=== PATIENT | male | born 1980 ===

== ENCOUNTER 2020-10-10 06:14 | Day surgery (SDC) | payer OTHER ==
[2020-10-10 11:21] VITALS: BP 127/75
== END 2020-10-10 11:35 | disposition home or self-care (01) | DRG 352 ==
LOC: ORM 06:14
PROVIDERS: ATTEND Surgery
PROC: 0YU60JZ Supplement Left Inguinal Region with Synthetic Substitute, Open Approach (ICD-10-PCS; principal; 2020-10-10)
DX: K40.91 Unilateral inguinal hernia, without obstruction or gangrene, recurrent (principal); Z20.822 Contact with and (suspected) exposure to COVID-19
CPT/HCPCS: C9290; J0131; J1100